=== PATIENT | male | born 1960 | race Caucasian/White ===

== ENCOUNTER 2019-12-15 05:15 | Emergency (ER) | payer SELFPAY ==
[~2019-12-15] VITALS: Ht 170.2 cm; Wt 79.4 kg
--- NOTE | 2019-12-15 05:15 | NUR ---
PT SEPIDEH SILVA. TAKEN TO BED 5. [facility] AT BEDSIDE
[2019-12-15 05:16] VITALS: BP 147/75
--- NOTE | 2019-12-15 05:17 | NUR ---
Dr. Benites examining patient.
--- NOTE | 2019-12-15 05:20 | NUR ---
unable to complete assessment, pt will not speak
--- NOTE | 2019-12-15 05:29 | NUR ---
DR. MCKEON SUTURING, PT'S BILATERAL WRIST AT BEDSIDE
[2019-12-15] MEDS ORDERED: BACITRACIN OINT 500 UNITS/GM PKT TP ONE (05:38)
[2019-12-15] MEDS: LIDOCAINE 2% 1000 MG/50 ML VIAL INJ ONE (05:46)
[2019-12-15] MEDS: BACITRACIN OINT 500 UNITS/GM PKT TP ONE (05:47)
[2019-12-15 05:51] VITALS: BP 147/75
--- NOTE | 2019-12-15 05:54 | NUR ---
PATIENT [facility] [employer]. PATIENT EXAMINED BY DR. MCKOEN. PATIENT MEDICALLY CLEARED AND RELEASED IN CUSTODY IN STABLE CONDITION. ORIGINAL PRE-BOOK FORM GIVEN TO OFFICER SONNY.
== END 2019-12-15 05:54 ==
LOC: MED 05:15
DX: S61.512A Laceration without foreign body of left wrist, initial encounter (principal); S61.511A Laceration without foreign body of right wrist, initial encounter; S11.91XA Laceration without foreign body of unspecified part of neck, initial encounter; R03.0 Elevated blood-pressure reading, without diagnosis of hypertension; Z02.89 Encounter for other administrative examinations; W45.8XXA Other foreign body or object entering through skin, initial encounter; Y93.89 Activity, other specified; Y92.89 Other specified places as the place of occurrence of the external cause; Y99.8 Other external cause status
CPT/HCPCS: 12004; 12013; 90471; 90715; 99283